=== PATIENT | male | born 1990 | race Two or more races ===

== ENCOUNTER 2020-02-24 16:44 | Emergency (ER) | payer OTHER ==
[~2020-02-24] VITALS: Ht 177.8 cm; Wt 77.1 kg
[2020-02-24] MEDS ORDERED: Lidocaine 1% 10mg/ml/EPI 0.01mg/ml 30ml INJ ONE (18:00)
[2020-02-24] MEDS ORDERED: Lidocaine 1% 10mg/ml/Epi 0.005mg/ml 30ml vial INJ ONE (18:02)
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
[2020-02-24] MEDS ORDERED: IBUPROFEN600 M1 ORAL (18:28)
[2020-02-24] MEDS ORDERED: AUGMENTIN 875-1 EAC1 ORAL (18:28)
[2020-02-24] MEDS ORDERED: MUPIROCIN22 GM TOPIC (18:28)
[2020-02-24 18:33] VITALS: BP 122/75
[2020-02-24] MEDS ORDERED: Bacitracin Oint UD TOPIC ONE (18:45)
== END 2020-02-24 18:33 | disposition home or self-care (01) ==
LOC: EMR 17:22
DX: S81.811A Laceration without foreign body, right lower leg, initial encounter (principal); W22.8XXA Striking against or struck by other objects, initial encounter; Y92.9 Unspecified place or not applicable
CPT/HCPCS: 99283

== ENCOUNTER → 2020-03-06 | Emergency (ER) | payer OTHER ==
[~2020-03-06] VITALS: Ht 177.8 cm; Wt 77.1 kg
[~2020-03-06] MED LIST: AUGMENTIN 875-1 EAC1 ORAL; IBUPROFEN600 M1 ORAL; MUPIROCIN22 GM TOPIC
[2020-03-06 21:57] VITALS: BP 132/98
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
== END | disposition home or self-care (01) ==
LOC: EMR 22:20
DX: Z48.02 Encounter for removal of sutures (principal)
CPT/HCPCS: 99281